=== PATIENT | male | born 1970 | race Asian ===

== ENCOUNTER 2022-06-24 16:28 | Emergency (ER) | payer SELFPAY | END 2022-06-24 17:49 | disposition home or self-care (01) | LOC: MADERS 16:28 | DX: S60.212A Contusion of left wrist, initial encounter (principal); F17.210 Nicotine dependence, cigarettes, uncomplicated; W20.8XXA Other cause of strike by thrown, projected or falling object, initial encounter; Y93.F2 Activity, caregiving, lifting ==